=== PATIENT | female | born 1990 | race Asian ===

== ENCOUNTER 2017-04-14 06:08 | Outpatient (CLI) | payer OTHER ==
[~2017-04-14] VITALS: Ht 165.1 cm; Wt 68.6 kg
[~2017-04-14 06:08] MED LIST: NO HOME MEDICATIONS; PREDNISONE20 MG PO
[2017-04-14 06:25] VITALS: BP 117/76; PULSE 88; TEMP 98.7
[2017-04-14 06:30] VITALS: BP 117/76; PULSE 88; TEMP 98.1
[2017-04-14] MEDS ORDERED: PRENATAL (06:33)
[2017-04-14 07:00] VITALS: BP 114/78; PULSE 78
== END 2017-04-14 07:42 | disposition home or self-care (01) ==
LOC: LDRO 06:08
DX: O62.9 Abnormality of forces of labor, unspecified (principal); Z3A.40 40 weeks gestation of pregnancy

== ENCOUNTER 2017-04-15 16:06 | Inpatient (IN) | payer OTHER ==
[2017-04-15] VITALS (29 sets, daily range): BP systolic 110–133; BP diastolic 60–86; PULSE 66–102; TEMP 98.1–99.3
[~2017-04-15] VITALS: Ht 165.1 cm; Wt 68.6 kg
[~2017-04-15 16:06] MED LIST changes: +PRENATAL
[2017-04-15 17:24] LABS: BASO % 0.4 % (0.0-2.0); EOS # 0.1 (0.0-0.7); EOS % 0.5 % (0-4.0); GRAN # 6.9 (1.4-6.5); GRAN % 72.1 % (42.2-75.2); LYMPH # 1.7 (1.2-3.4); LYMPH % 17.7 % (20.0-51.0); MEAN CELL VOLUME 92 fl (80.0-100.0); MEAN CORPUSCULAR HGB CONC 33 g/dl (33.0-37.0); MEAN PLATELET VOLUME 9.7 fl (7.4-10.4); MONO # 0.8 (0.1-0.6); MONO % 8.4 % (1.7-9.3); PLATELET COUNT 202 K/mm3 (130-400); RED BLOOD COUNT 3.72 M/mm3 (4.10-5.30); REDCELL DISTRIBUTION WIDTH-CV 12.9 % (11.5-14.5); WHITE BLOOD COUNT 9.6 K/mm3 (4.8-10.8)
[2017-04-15 17:26] LABS: HEMATOCRIT 34.2 % (37.0-47.0); HEMOGLOBIN 11.1 g/dl (12.5-16.0); MEAN CORPUSCULAR HEMOGLOBIN 30 pg (27.0-31.0)
[2017-04-16] VITALS (20 sets, daily range): BP systolic 95–165; BP diastolic 53–90; PULSE 74–127; TEMP 97.8–103.2
[2017-04-17 07:59] VITALS: BP 108/61; PULSE 79; TEMP 97.6
[2017-04-17] MEDS ORDERED: IBU600 MG PO (08:48)
[2017-04-17 09:09] LABS: BASO % 0.3 % (0.0-2.0); EOS # 0.1 (0.0-0.7); GRAN # 10.6 (1.4-6.5); GRAN % 75.6 % (42.2-75.2); LYMPH # 2.2 (1.2-3.4); LYMPH % 15.4 % (20.0-51.0); MEAN CELL VOLUME 93 fl (80.0-100.0); MEAN CORPUSCULAR HGB CONC 32 g/dl (33.0-37.0); MEAN PLATELET VOLUME 9.2 fl (7.4-10.4); MONO # 0.9 (0.1-0.6); MONO % 6.6 % (1.7-9.3); PLATELET COUNT 168 K/mm3 (130-400); REDCELL DISTRIBUTION WIDTH-CV 13.2 % (11.5-14.5); WHITE BLOOD COUNT 14.1 K/mm3 (4.8-10.8)
[2017-04-17 09:21] LABS: HEMATOCRIT 27.8 % (37.0-47.0); HEMOGLOBIN 8.9 g/dl (12.5-16.0); MEAN CORPUSCULAR HEMOGLOBIN 30 pg (27.0-31.0)
[2017-04-17 12:30] VITALS: BP 117/64; PULSE 86; TEMP 98.2
[2017-04-17 17:00] VITALS: BP 117/77; PULSE 94; TEMP 98.1
[2017-04-17 21:45] VITALS: BP 107/64; PULSE 78; TEMP 98.1
[2017-04-18 08:00] VITALS: BP 111/69; PULSE 80; TEMP 97.8
[2017-04-18] MEDS ORDERED: SENOKOT S 50 MG1 TAB PO (08:30)
[2017-04-18] MEDS ORDERED: FERRO-TIME325 MG PO (08:30)
== END 2017-04-18 16:25 | disposition home or self-care (01) | DRG 774 ==
LOC: LDRO 16:06 → OB 16:21 → LDR 16:21 → OB 04-16 05:15
PROVIDERS: Obstetrics & Gynecology
PROC: 10D07Z6 Extraction of Products of Conception, Vacuum, Via Natural or Artificial Opening (ICD-10-PCS; principal; 2017-04-15)
PROC: 0KQM0ZZ Repair Perineum Muscle, Open Approach (ICD-10-PCS; 2017-04-15)
DX: O48.0 Post-term pregnancy (principal); O75.2 Pyrexia during labor, not elsewhere classified; O70.1 Second degree perineal laceration during delivery; O76 Abnormality in fetal heart rate and rhythm complicating labor and delivery; O99.02 Anemia complicating childbirth; D64.9 Anemia, unspecified; Z3A.40 40 weeks gestation of pregnancy; Z37.0 Single live birth
CPT/HCPCS: J2540; J2590; J2795; J7120

== ENCOUNTER → 2017-04-22 | Outpatient (CLI) | payer OTHER ==
[~2017-04-22] MED LIST changes: +FERRO-TIME325 MG PO; +IBU600 MG PO; +SENOKOT S 50 MG1 TAB PO
== END ==
LOC: OLC 11:25
DX: Z39.1 Encounter for care and examination of lactating mother (principal); Z71.89 Other specified counseling